=== PATIENT | female | born 1975 | race Caucasian/White ===

== ENCOUNTER 2017-10-30 10:44 | Emergency (ER) | payer MEDICAID, OTHER ==
[2017-10-30] MEDS ORDERED: HYDROcodone/ACETAMIN 5-325 MG* 1 TAB PO ONE (11:42)
--- NOTE | 2017-10-30 11:50 | RAD ---
INDICATION: Left-sided back pain COMPARISON: None TECHNIQUE: Routine 2 view imaging was performed FINDINGS: Bones: There are no acute bony findings. There are no significant osteoarthritic findings. Alignment: Normal Disc spaces: The disc spaces are well-maintained Soft tissues: There are no soft tissue abnormalities. IMPRESSION: NO ACUTE BONY FINDINGS
--- NOTE | 2017-10-30 11:51 | RAD ---
INDICATION: Back pain COMPARISON: None TECHNIQUE: Routine PA, lateral, and oblique imaging was performed . FINDINGS: Bones: There are no acute bony findings. There are degenerative changes at L5-S1 with a bilateral L5 spondylolysis. Alignment: Grade 2 anterolisthesis of L5 on S1 Disc spaces: The remaining disc spaces are well-maintained Soft tissues: There are no soft tissue abnormalities. 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
[2017-10-30] MEDS ORDERED: Ibuprofen TAB* 200 MG PO ONE (12:10)
--- NOTE | 2017-10-30 12:18 | UC ---
Back Pain HPI - HPI Summary HPI Summary: Patient presents with a past medical history of arthritis in her back and fibromyalgia. She presents today with left sided lower back pain, occurred after she helped her friend move furniture. She states the pain originates from the thoracic are and radiates down to the hip. The pain is constant but worse with certain positions, and does not complete resolve at rest. She states she is more comfortable standing. She denies any incontinence of bowel or bladder, or saddle paresthesia. She denies any falls or other injuries. Patient denies fever, chills or midline tenderness. - History of Current Complaint Chief Complaint: UCBackPain Stated Complaint: BACK PAIN Time Seen by Provider: 10/30/17 11:12 Hx Obtained From: Patient Hx Last Menstrual Period: 10/04/17 Onset/Duration: Sudden Onset Timing: Constant Severity Initially: Moderate Severity Currently: Moderate Pain Intensity: 9 Character: Sharp Aggravating Factor(s): Movement, Bending Alleviating Factor(s): Nothing Associated Signs And Symptoms: Positive: Negative - Risk Factors AAA Risk Factors: Negative TAD Risk Factors: Negative Cauda Equina Risk Factors: Negative Epidural Abscess Risk Factors: Negative - Allergies/Home Medications Allergies/Adverse Reactions: Allergies Allergy/AdvReac Type Severity Reaction Status Date / Time No Known Allergies Allergy Verified 10/30/17 10:56 Home Medications: Home Medications Lisinopril TAB* [Prinivil TAB 10 MG*] 10 mg PO DAILY 10/30/17 [History Confirmed 10/30/17] Pantoprazole TAB (NF) [Protonix TAB (NF)] 40 mg PO DAILY 10/30/17 [History Confirmed 10/30/17] Pregabalin [Lyrica] 225 mg PO BID 10/30/17 [History Confirmed 10/30/17] PMH/Surg Hx/FS Hx/Imm Hx Previously Healthy: Yes Other Neurological History: fibromyalgia - Surgical History Surgical History: Yes Surgery Procedure, Year, and Place: Right Parotid Gland removal of tumor; Sinus Surgery x 2. - Family History Known Family History: Positive: None - Social History Occupation: Unemployed Lives: With Family Alcohol Use: None Substance Use Type: None Smoking Status (MU): Heavy Every Day Tobacco Smoker Type: Cigarettes Amount Used/How Often: >1ppd Household Exposure Type: Cigarettes Review of Systems Constitutional: Negative Skin: Negative Eyes: Negative ENT: Negative Respiratory: Negative Cardiovascular: Negative Gastrointestinal: Negative Genitourinary: Negative Motor: Negative Neurovascular: Negative Musculoskeletal: Decreased ROM, Myalgia Neurological: Negative Psychological: Negative Is Patient Immunocompromised?: No All Other Systems Reviewed And Are Negative: Yes Physical Exam Triage Information Reviewed: Yes Appearance: Well-Appearing Vital Signs: Initial Vital Signs Temp 99.0 F 10/30/17 10:58 Pulse 91 10/30/17 10:58 Resp 20 10/30/17 10:58 BP 132/75 10/30/17 10:58 Pulse Ox 99 10/30/17 10:58 Eye Exam: Normal ENT Exam: Normal Neck exam: Normal Neck: Positive: 1 Respiratory Exam: Normal Cardiovascular Exam: Normal Abdominal Exam: Normal Musculoskeletal Exam: Other - Back inspection, no areas of eccymosis, erythema, or edema. vertebrea midline no tendnerness on palpation. palpation, midline nontender, no warmth. reproducible pain palpated to left lateral thoracic, to left lip laterally. ROM; no ability to flex, patient hyperflex when sitting. Negative straight leg raise. Patellar reflexes equal 1+. Gait heel-toe. Neuro no deficits to touch distally. Neurological Exam: Normal Psychological Exam: Normal Skin Exam: Normal Back Pain Course/Dx - Course Course Of Treatment: Patient presents with nontraumatic back pain, xrays were obtained and read as spondylosis, and grade 2 anteriorlithesis. She was given disc copies of the xrays as she is from [place]. I addressed her pain. Told her if she is still symtomatic to follow up with her PCP talha Rosario. She had no clinical findings suspecious of spinal abcess, or cauda equina syndrome. She was discharge home in stable conditon. - Differential Dx/Diagnosis Differential Diagnosis/HQI/PQRI: Strain, Sprain, Other - acute lumbar sprain Provider Diagnoses: Acute lumbar sprain Discharge - Sign-Out/Discharge Documenting (check all that apply): Discharge/Admit/Transfer - Discharge Plan Condition: Stable Disposition: HOME Prescriptions: Hydrocodone/Acetaminophen [[place] 5-325 Tablet] 1 each PO Q6HR PRN #14 tablet MDD 4 PRN Reason: back pain Patient Education Materials: Back Pain (ED) Referrals: No Primary Care Phys,NOPCP [Primary Care Provider] - - Billing Disposition and Condition Condition: STABLE Disposition: HOME
== END 2017-10-30 12:19 | disposition home or self-care (01) ==
LOC: UCEAST 10:44
DX: S33.5XXA Sprain of ligaments of lumbar spine, initial encounter (principal); X50.9XXA Other and unspecified overexertion or strenuous movements or postures, initial encounter; Y93.E6 Activity, residential relocation; Y92.009 Unspecified place in unspecified non-institutional (private) residence as the place of occurrence of the external cause; M79.7 Fibromyalgia; F17.210 Nicotine dependence, cigarettes, uncomplicated
CPT/HCPCS: 72070; 72110; 99202; A9270-GY; G0463